=== PATIENT | female | born 1980 | race Two or more races ===

== ENCOUNTER 2018-02-25 21:15 | Emergency (ER) | payer BC ==
[~2018-02-25] VITALS: Ht 157.5 cm; Wt 62.7 kg
[2018-02-25] MEDS ORDERED: KETOROLAC 30 MG/1 ML IVPush ONE (22:00)
[2018-02-25] MEDS ORDERED: KETOROLAC 30 MG/1 ML ONE (22:08)
[2018-02-25 22:19] LABS: BASOPHILS # (AUTO) 0.03 x10^3/uL (0-0.1); BASOPHILS % (AUTO) 0 % (0-1); EOSINOPHILS # (AUTO) 0.09 x10^3/uL (0-0.4); EOSINOPHILS % (AUTO) 1 % (1-7); LYMPHOCYTES # (AUTO) 2.14 x10^3/uL (1-3.4); LYMPHOCYTES % (AUTO) 19 % (22-44); MD NO; MEAN CORPUSCULAR HEMOGLOBIN 23.3 pg (27.0-34.8); MEAN CORPUSCULAR HGB CONC 31.5 g/dL (32.4-35.8); MEAN CORPUSCULAR VOLUME 73.8 fL (80-100); MEAN PLATELET VOLUME 8.2 fL (7.4-10.4); MONOCYTES # (AUTO) 1.04 x10^3/uL (0.2-0.8); MONOCYTES % (AUTO) 9 % (2-9); NEUTROPHILS # (AUTO) 7.76 x10^3/uL (1.8-6.8); NEUTROPHILS % (AUTO) 70 % (42-75); PLATELET COUNT 390 x10^3/uL (130-400); RED BLOOD COUNT 4.84 x10^6/uL (3.82-5.3); RED CELL DISTRIBUTION WIDTH 20.8 % (9.6-15.2)
[2018-02-25 22:36] LABS: ALANINE AMINOTRANSFERASE 17 U/L (12-78); ALBUMIN 3.8 g/dL (3.4-5.0); ANION GAP 7 mmol/L (5-15); CHLORIDE 110 mmol/L (98-107); CREATININE 0.85 mg/dL (0.55-1.02)
[2018-02-25 22:40] LABS: ALKALINE PHOSPHATASE 52 U/L (45-117); BILIRUBIN,TOTAL 0.2 mg/dL (0.2-1.0); TOTAL PROTEIN 7.6 g/dL (6.4-8.2)
[2018-02-26 00:09] LABS: CULTURE INDICATED? YES; MICROSCOPIC INDICATED
[2018-02-26 00:27] VITALS: BP 119/74
== END 2018-02-26 00:34 | disposition home or self-care (01) ==
LOC: ED 23:59
DX: N30.01 Acute cystitis with hematuria (principal); G89.29 Other chronic pain; F17.210 Nicotine dependence, cigarettes, uncomplicated; Z88.5 Allergy status to narcotic agent
CPT/HCPCS: 36415; 76770; 76830; 80053; 81001; 84703; 85025; 87077; 87086; 87186; 96374; 99285; J1885

== ENCOUNTER 2019-09-18 07:40 | Inpatient (IN) | payer BC ==
[~2019-09-18] VITALS: Ht 154.9 cm; Wt 63.4 kg
[2019-09-18] MEDS ORDERED: KETOROLAC 30 MG/1 ML ONE (09:08)
[2019-09-18] MEDS ORDERED: DIPHENHYDRAMINE 50 MG/ML, 1ML ONE (09:08)
[2019-09-18] MEDS ORDERED: METOCLOPRAMIDE 5 MG/ML, 2ML ONE (09:08)
--- NOTE | 2019-09-18 09:19 | NUR ---
IV ESTABLISHED AND PT MEDICATED PER MAR. AWAITING LAB RESULTS.. AT BEDSIDE, CALL LIGHT WITHIN REACH.
[2019-09-18] MEDS ORDERED: DIPHENHYDRAMINE 50 MG/ML, 1ML IVPush ONE (09:30)
[2019-09-18] MEDS ORDERED: METOCLOPRAMIDE 5 MG/ML, 2ML IVPush ONE (09:30)
[2019-09-18] MEDS ORDERED: SODIUM CHLORIDE 0.9% 1,000ML IVBOLUS ONE (09:30)
[2019-09-18] MEDS ORDERED: KETOROLAC 30 MG/1 ML IVPush ONE (09:30)
[2019-09-18] MEDS ORDERED: ONDANSETRON 2MG/ML, 2ML IVPush ONE (09:30)
[2019-09-18 10:16] LABS: MEAN CORPUSCULAR HEMOGLOBIN 22.8 pg (27.0-34.8); MEAN CORPUSCULAR HGB CONC 31.4 g/dL (32.4-35.8); MEAN CORPUSCULAR VOLUME 72.7 fL (80-100); MEAN PLATELET VOLUME 8.2 fL (7.4-10.4); PLATELET COUNT 235 x10^3/uL (130-400); RED BLOOD COUNT 4.39 x10^6/uL (3.82-5.3); RED CELL DISTRIBUTION WIDTH 21.6 % (9.6-15.2)
[2019-09-18] MEDS ORDERED: DIAZEPAM 5 MG/ML, 2ML ONE (10:27)
[2019-09-18] MEDS ORDERED: DIAZEPAM 5 MG/ML, 2ML IV ONE (10:30)
--- NOTE | 2019-09-18 10:57 | NUR ---
REPORT RECEIVED FROM DINA RIDDLE. PT AMBULATED TO THE BR W/ A STEADY GAIT.
[2019-09-18 11:07] LABS: BASOPHILS # (AUTO) 0.01 x10^3/uL (0-0.1); BASOPHILS % (AUTO) 1 % (0-1); EOSINOPHILS # (AUTO) 0.03 x10^3/uL (0-0.4); EOSINOPHILS % (AUTO) 2 % (1-7); LYMPHOCYTES # (AUTO) 0.79 x10^3/uL (1-3.4); LYMPHOCYTES % (AUTO) 48 % (22-44); MD SCAN; MONOCYTES # (AUTO) 0.19 x10^3/uL (0.2-0.8); MONOCYTES % (AUTO) 12 % (2-9); NEUTROPHILS # (AUTO) 0.62 x10^3/uL (1.8-6.8); NEUTROPHILS % (AUTO) 38 % (42-75)
--- NOTE | 2019-09-18 11:07 | NUR ---
ALL TESTS RESULTED. PT IS UP FOR RECHECK AT THIS TIME.
--- NOTE | 2019-09-18 11:14 | NUR ---
CRITICAL WBC REPORTED TO . REVERSE ISO PRECAUTIONS IN PLACE. PT EDUCATED ON NEED FOR FAMILY MEMBERS TO WEAR A MASK.
--- NOTE | 2019-09-18 11:53 | NUR ---
dr stephen spoke with dr frankel
[2019-09-18] MEDS ORDERED: CARI350T PO (12:08)
[2019-09-18] MEDS ORDERED: HYDR-36 PO (12:08)
--- NOTE | 2019-09-18 12:09 | NUR ---
PT UPDATED ON POC FOR HEAD CT. VS STABLE. PT RESTING ON Seratis W/ CALL LIGHT IN REACH.
[2019-09-18 12:26] LABS: ALANINE AMINOTRANSFERASE 18 U/L (12-78); ALBUMIN 3.3 g/dL (3.4-5.0); ANION GAP 5 mmol/L (5-15); CALCIUM 7.4 mg/dL (8.5-10.1); CHLORIDE 109 mmol/L (98-107); CREATININE 0.59 mg/dL (0.55-1.02)
[2019-09-18 12:29] LABS: HCT (SEDRATE) 31.9 % (34.6-47.8)
[2019-09-18 12:52] LABS: ALKALINE PHOSPHATASE 37 U/L (45-117); BILIRUBIN,TOTAL 0.2 mg/dL (0.2-1.0); TOTAL PROTEIN 6.3 g/dL (6.4-8.2)
[2019-09-18] MEDS ORDERED: GUAIFENESIN/DM 200-20MG, 10ML UDC PO PRN (13:00)
[2019-09-18] MEDS ORDERED: LABETALOL 5MG/ML, 20ML IVPush PRN (13:00)
[2019-09-18] MEDS ORDERED: BUTALB/APAP/CAFFEINE 50MG/325MG/40MG PO PRN (13:00)
[2019-09-18] MEDS ORDERED: IBUPROFEN 600 MG TABLET PO PRN (13:00)
[2019-09-18] MEDS ORDERED: ACETAMINOPHEN 325 MG TABLET PO PRN (13:00)
[2019-09-18] MEDS ORDERED: ONDANSETRON ODT 4 MG PO PRN (13:00)
[2019-09-18] MEDS ORDERED: hydrALAzine 20 MG/ML, 1ML IVPush PRN (13:00)
[2019-09-18] MEDS ORDERED: BACLOFEN 10 MG TABLET PO PRN (13:00)
--- NOTE | 2019-09-18 13:02 | NUR ---
VS UPDATED. LAB IN ROOM.
--- NOTE | 2019-09-18 13:17 | NUR ---
ADMITTING PROVIDER AT BEDSIDE.
--- NOTE | 2019-09-18 13:20 | NUR ---
REPORT GIVEN TO LUIS RIDDLE. PT TRANSPORTED TO CT. WILL TRANFER TO FLOOR UPON RETURN.
[2019-09-18 13:48] LABS: FREE T4 (FREE THYROXINE) 1.03 ng/dL (0.76-1.46)
[2019-09-18 13:56] VITALS: BP 99/68
[2019-09-18] MEDS ORDERED: HYDROcodone/APAP 10/325 MG TABLET PO SCH (16:00)
[2019-09-18] MEDS ORDERED: CARISOPRODOL 350 MG TABLET PO SCH (16:00)
[2019-09-18] MEDS: ONDANSETRON 2MG/ML, 2ML IVPush PRN (17:23)
[2019-09-18] MEDS ORDERED: DULO30CA44 PO (18:50)
[2019-09-18 18:56] VITALS: BP 89/58
[2019-09-18] MEDS: DULOXETINE 30 MG CAPSULE.DR HOMEMEDPO SCH (19:47)
[2019-09-18] MEDS: KETOROLAC 30 MG/1 ML IV PRN (19:47)
[2019-09-19] MEDS ORDERED: HYDROcodone/APAP 10/325 MG TABLET PO SCH
[2019-09-19] MEDS: HYDROcodone/APAP 10/325 MG TABLET PO SCH ×3 (01:27→16:47)
[2019-09-19] MEDS: CARISOPRODOL 350 MG TABLET PO SCH ×2 (01:28→11:07)
[2019-09-19] MEDS: KETOROLAC 30 MG/1 ML IV PRN ×2 (05:18→16:47)
[2019-09-19 05:42] LABS: MEAN CORPUSCULAR HEMOGLOBIN 22.6 pg (27.0-34.8); MEAN CORPUSCULAR HGB CONC 31.2 g/dL (32.4-35.8); MEAN CORPUSCULAR VOLUME 72.7 fL (80-100); MEAN PLATELET VOLUME 8.5 fL (7.4-10.4); PLATELET COUNT 240 x10^3/uL (130-400); RED BLOOD COUNT 4.45 x10^6/uL (3.82-5.3); RED CELL DISTRIBUTION WIDTH 21.9 % (9.6-15.2)
[2019-09-19 05:45] LABS: ANION GAP 6 mmol/L (5-15); CALCIUM 7.4 mg/dL (8.5-10.1); CHLORIDE 113 mmol/L (98-107); CREATININE 0.56 mg/dL (0.55-1.02)
[2019-09-19 05:46] LABS: ALANINE AMINOTRANSFERASE 16 U/L (12-78)
[2019-09-19 05:47] LABS: ALKALINE PHOSPHATASE 40 U/L (45-117); BILIRUBIN,TOTAL 0.2 mg/dL (0.2-1.0); TOTAL PROTEIN 6.1 g/dL (6.4-8.2)
[2019-09-19 05:48] VITALS: BP 91/59
[2019-09-19 06:28] LABS: BASOPHILS % (AUTO) 0 % (0-1); EOSINOPHILS # (AUTO) 0.12 x10^3/uL (0-0.4); EOSINOPHILS % (AUTO) 5 % (1-7); LYMPHOCYTES # (AUTO) 1.24 x10^3/uL (1-3.4); LYMPHOCYTES % (AUTO) 53 % (22-44); MD SCAN; MONOCYTES # (AUTO) 0.27 x10^3/uL (0.2-0.8); MONOCYTES % (AUTO) 12 % (2-9); NEUTROPHILS # (AUTO) 0.73 x10^3/uL (1.8-6.8); NEUTROPHILS % (AUTO) 31 % (42-75)
[2019-09-19 06:51] VITALS: BP 177/95
[2019-09-19 08:19] VITALS: BP 106/70
[2019-09-19] MEDS ORDERED: DULOXETINE 30 MG CAPSULE.DR HOMEMEDPO SCH (09:00)
[2019-09-19] MEDS: AMPICILLIN/SULBACTAM 3 GM in SODIUM CHLORIDE 0.9% 100 ML IV SCH ×2 (12:17→17:37)
[2019-09-19 12:24] LABS: HCT (SEDRATE) 33.4 % (34.6-47.8)
[2019-09-19 12:36] LABS: C-REACTIVE PROTEIN, QUANT 0.03 mg/dL (0.02-0.49)
[2019-09-19 13:12] VITALS: BP 91/58
[2019-09-19 14:20] VITALS: BP 96/61
[2019-09-19 14:33] LABS: MICROSCOPIC NOT IND
[2019-09-19 14:44] LABS: CULTURE INDICATED? NO
[2019-09-19 19:03] VITALS: BP 102/66
[2019-09-19] MEDS: BUTALB/APAP/CAFFEINE 50MG/325MG/40MG PO PRN ×2 (19:29→21:00)
[2019-09-19] MEDS: DULOXETINE 30 MG CAPSULE.DR HOMEMEDPO SCH (21:00)
[2019-09-19] MEDS ORDERED: OMNIPAQUE 350 MG/ML, 100ML BOTTLE ONE (21:35)
[2019-09-20] MEDS: AMPICILLIN/SULBACTAM 3 GM in SODIUM CHLORIDE 0.9% 100 ML IV SCH ×3 (00:07→12:01)
[2019-09-20] MEDS: TEMAZEPAM 15 MG CAPSULE PO PRN ×2 (00:08→00:43)
[2019-09-20 00:41] VITALS: BP 103/62
[2019-09-20] MEDS: ONDANSETRON 2MG/ML, 2ML IVPush PRN (00:43)
[2019-09-20] MEDS: HYDROcodone/APAP 10/325 MG TABLET PO SCH ×3 (00:43→17:08)
[2019-09-20 07:15] VITALS: BP 95/58
[2019-09-20 08:44] LABS: MEAN CORPUSCULAR HEMOGLOBIN 22.7 pg (27.0-34.8); MEAN CORPUSCULAR HGB CONC 31.4 g/dL (32.4-35.8); MEAN CORPUSCULAR VOLUME 72.2 fL (80-100); MEAN PLATELET VOLUME 8.1 fL (7.4-10.4); PLATELET COUNT 249 x10^3/uL (130-400); RED BLOOD COUNT 4.42 x10^6/uL (3.82-5.3); RED CELL DISTRIBUTION WIDTH 21.6 % (9.6-15.2)
[2019-09-20 08:48] LABS: ANION GAP 4 mmol/L (5-15); CALCIUM 7.7 mg/dL (8.5-10.1); CHLORIDE 112 mmol/L (98-107)
[2019-09-20 09:21] LABS: MD YES
[2019-09-20 09:23] LABS: BAND#(MANUAL) 0.07 x10^3/uL; BANDS%(MANUAL) 3 % (0-7); EOS#(MANUAL) 0.14 x10^3/uL (0.0-0.4); EOS% (MANUAL) 6 % (1-7); LYMPH#(MANUAL) 1.15 x10^3/uL (1-3.4); LYMPHS% (MANUAL) 50 % (22-44); MONOS#(MANUAL) 0.16 x10^3/uL (0.3-2.7); MONOS% (MANUAL) 7 % (2-9); SEG#(MANUAL) 0.78 x10^3/uL (1.8-6.8); SEGS% (MANUAL) 34 % (42-75)
[2019-09-20 09:24] LABS: <PLATELET ESTIMATE> ADEQUATE; <PLT MORPHOLOGY> NORMAL PLT MORPH; ANISOCYTOSIS 1+; HYPOCHROMIA 1+; MICROCYTOSIS 1+; OVALOCYTES 1+
[2019-09-20] MEDS ORDERED: ERGOCALCIFEROL 50,000 UNIT CAPSULE PO SCH (09:30)
[2019-09-20] MEDS ORDERED: IRON SUCROSE COMPLEX 100MG/5ML IV ONE (09:30)
[2019-09-20 12:10] LABS: ANA SCREEN NEGATIVE (Negative)
[2019-09-20 13:20] VITALS: BP 101/62
[2019-09-20] MEDS ORDERED: AMOX1TAB64 PO (16:33)
[2019-09-20] MEDS ORDERED: ERGO500017 PO (16:33)
[2019-09-20] MEDS ORDERED: FERR325T16 PO (16:33)
[2019-09-20] MEDS ORDERED: FERROUS GLUCONATE 324 MG TABLET PO SCH (17:00)
== END 2019-09-20 18:10 | disposition home or self-care (01) | DRG 809 ==
LOC: ED 08:44 → EDIP 13:00 → SUATTDRO 13:21 → 4NE 13:42 → 4NW 09-20 00:19
PROVIDERS: ADMIT Family Medicine; ATTEND Family Medicine
DX: D70.9 Neutropenia, unspecified (principal); E44.0 Moderate protein-calorie malnutrition; G43.919 Migraine, unspecified, intractable, without status migrainosus; D50.9 Iron deficiency anemia, unspecified; D53.9 Nutritional anemia, unspecified; E83.51 Hypocalcemia; E87.6 Hypokalemia; F17.200 Nicotine dependence, unspecified, uncomplicated; G44.209 Tension-type headache, unspecified, not intractable; G89.29 Other chronic pain; J01.90 Acute sinusitis, unspecified; J32.2 Chronic ethmoidal sinusitis; J32.3 Chronic sphenoidal sinusitis; M79.7 Fibromyalgia; Z90.49 Acquired absence of other specified parts of digestive tract; Z79.899 Other long term (current) drug therapy; Z68.26 Body mass index [BMI] 26.0-26.9, adult; Z88.8 Allergy status to other drugs, medicaments and biological substances
CPT/HCPCS: 36415; 70450; 74177; 80048; 80053; 80074; 81003; 82306; 82607; 82728; 83540; 83550; 83615; 83735; 84100; 84439; 84443; 84466; 85025; 85651; 86038; 86140; 86430; 87806; 96361; 96374; 96375; G0378; J0295; J1756; J1885; J2405; J3360; Q9967; G0475; J1200; J2765; J7030